=== PATIENT | female | born 1990 | race Caucasian/White ===

== ENCOUNTER 2016-09-22 06:53 | Outpatient (CLI) | payer MEDICAID ==
[~2016-09-22 06:53] MED LIST: NO ROUTINE MEDS; OXYC1TAB8 PO; PREN1TAB50 PO
[2016-09-22] MEDS ORDERED: ACETAMINOPHEN 500 MG TABLET PO PRN (07:30)
[2016-09-22] MEDS ORDERED: RANI150T12 PO (07:44)
[2016-09-22] MEDS ORDERED: ACET-62 PO (07:44)
[2016-09-22] MEDS ORDERED: ASPI1TAB7 PO (07:45)
[2016-09-22 07:53] LABS: BLOOD, URINE 1+ (NEGATIVE); COLOR,URINE YELLOW (YELLOW); LEUKOCYTE ESTERASE ,URINE NEGATIVE (NEGATIVE); NITRITE,URINE NEGATIVE (NEGATIVE); UROBILINOGEN,URINE 0.2 EU/DL (NORMAL)
[2016-09-22 08:05] LABS: HYALINE CASTS, URINE 0-1 /LPF; MUCUS,URINE PRESENT
[2016-09-22 08:07] LABS: BACTERIA,URINE 2+ (NEGATIVE)
[2016-09-22] MEDS ORDERED: FOSFOMYCIN 3 GRAM PACKET PO ONE (08:45)
== END 2016-09-22 08:45 | disposition home or self-care (01) ==
LOC: MC 06:53 → OBOBS 06:53
PROVIDERS: ATTEND Obstetrics & Gynecology
DX: O26.893 Other specified pregnancy related conditions, third trimester (principal); R10.2 Pelvic and perineal pain; R51 Headache; Z3A.31 31 weeks gestation of pregnancy
CPT/HCPCS: 81001